=== PATIENT | male | born 1945 | race Caucasian/White ===

== ENCOUNTER → 2020-07-16 14:42 | Outpatient (CLI) | payer MEDICARE, SELFPAY ==
[2016-02-28 15:27] VITALS: BMI 28.3
[2020-07-16 17:28] LABS: Absolute Lymphocyte Count 1.39 X10^3/uL (0.83-4.51); Absolute Neutrophil Count 2.7 X10^3/uL (2.0-7.7); Basophil# 0.05 X10^3/uL; Eosinophil# 0.18 X10^3/uL; Eosinophils% 3.7 % (0-5); Hematocrit 45.5 % (40-54); Hemoglobin 14.4 g/dL (13.0-16.5); Lymphocyte # 1.39 X10^3/ul (4.0); Lymphocyte % 28.2 % (19-41); Mean Corp Hgb Conc 31.6 g/dL (32-36); Mean Corpuscular Volume 91.7 fL (80-94); Mean Platelet Vol. 11.5 fl (6.2-12.0); Monocyte# 0.63 X10^3/uL; Monocyte% 12.8 % (0-10); NRBC Flagged by Analyzer 0 % (0-5); Neutrophil # 2.67 X10^3/uL (2.7-7.7); Neutrophil % 54.1 % (47-70); Platelet Count 189 K/mm3 (150-450); RBC Distribution Width CV 13.2 % (11.6-14.6); RBC Distribution Width SD 44.9 fl (35.1-43.9); Red Blood Count 4.96 M/mm3 (4.6-6.2); White Blood Count 4.9 K/mm3 (4.4-11.0)
[2020-07-16 17:34] LABS: Erythrocyte Sedimentation Rate 7 mm/hr (0-20)
[2020-07-16 17:43] LABS: ALB/GLOB Ratio 1.1 RATIO (0.9-2.4); AST(SGOT) 17 U/L (15-37); Alanine Aminotransfer ALT/SGPT 27 U/L (16-61); Albumin, Serum 3.9 g/dL (3.2-5.0); Alkaline Phosphatase 102 U/L (45-117); Anion Gap 5 (5-15); BUN 12 mg/dL (7-18); BUN/Creat Ratio 13.2 RATIO (10-20); Calcium,Total 9.5 mg/dL (8.5-10.1); Chloride 106 mmol/L (98-107); Creatinine, Serum 0.91 mg/dL (0.70-1.30); EST Glomerular Filtration Rate 86 mL/min (>60); Est Glom Filt Rate - Afr Amer 104 mL/min (>60); Globulin 3.6 g/dL (2.2-4.2); Glucose 87 mg/dL (74-106); Potassium 4.1 mmol/L (3.5-5.1); Protein, Total 7.5 g/dL (6.4-8.2); Rheumatoid Factor < 10.0 IU/mL (<15); Sodium Level 140 mmol/L (136-145)
[2020-07-19 16:08] LABS: SJOGREN'S Anti-SS-A test < 0.2 AI (0.0-0.9); SJOGREN'S Anti-SS-B test < 0.2 AI (0.0-0.9)
[2020-07-19 16:25] LABS: ANTINUCLEAR ANTIBODIES DIRECT Negative (Negative)
== END ==
PROVIDERS: PCP Family Medicine; Referring Provider Physician Assistant Medical; Visit Provider Physician Assistant Medical
DX: L50.8 Other urticaria (principal); L50.1 Idiopathic urticaria; L57.0 Actinic keratosis; L21.8 Other seborrheic dermatitis; L29.8 Other pruritus
CPT/HCPCS: 36415; 80053; 85025; 85652; 86038; 86235; 86431

== ENCOUNTER 2020-08-17 16:36 | Outpatient (RCR) | payer MEDICARE, SELFPAY ==
[2020-08-17] MEDS: COVID-19 VACC, MRNA(PFIZER)/PF 30 MCG/0.3 ML SYRINGE IM (19:00)
[2020-09-09] MEDS: COVID-19 VACC, MRNA(PFIZER)/PF 30 MCG/0.3 ML SYRINGE IM (13:04)
== END 2020-10-26 23:59 ==
LOC: IMMUN 16:36
PROVIDERS: PCP Family Medicine; Visit Provider Family Medicine
DX: Z23 Encounter for immunization (principal)
CPT/HCPCS: 0001A; 0002A; 91300

== ENCOUNTER → 2022-01-16 | Outpatient (CLI) | payer MEDICARE, SELFPAY ==
--- NOTE | 2022-01-16 17:10 | CT_ITS ---
STUDY: CT RIGHT LOWER EXTREMITY WITHOUT CONTRAST REASON FOR EXAM: Right knee osteoarthritis, surgical planning. TECHNIQUE: Transaxial CT imaging of the lower extremity was performed. Coronal and sagittal images were reformatted. Individualized dose optimization techniques were used for this CT. COMPARISON: None. FINDINGS: Knee: There is joint space narrowing of the medial femorotibial compartment with subchondral eburnation (coronal reconstruction 27). There is preservation of joint space of the lateral femorotibial compartment. There is joint space narrowing of the lateral aspect of the patellofemoral articulation (axial image 328). There is a small joint effusion. There is a small popliteal cyst (axial image 395). There is enthesopathy of the proximal tibia at the origin of the soleus muscle (coronal reconstruction 36). Hip: There is a small subchondral cyst in the lateral acetabulum (coronal reconstruction 60-62) with preservation of right hip joint space. There are radiation seeds in the prostate. Ankle: Normal tibiotalar, posterior subtalar and calcaneocuboid articulations. There is a small posterior calcaneal enthesophyte. There is mild enthesopathy of the medial malleolus. There is vascular calcification. CT/Extremity Lower without Contra IMPRESSION: Right knee osteoarthritis. Electronically Signed: Jeff Walton MD at 14:58 EDT ,
== END | disposition home or self-care (01) ==
PROVIDERS: PCP Family Medicine; Visit Provider Orthopaedic Surgery
DX: M17.11 Unilateral primary osteoarthritis, right knee (principal)
CPT/HCPCS: 73700

== ENCOUNTER 2022-01-30 11:40 | Observation (INO) | payer MEDICARE, SELFPAY ==
--- NOTE | 2022-01-24 13:59 | EKG12_ITS ---
Test Reason : PREOP Blood Pressure : / mmHG Vent. Rate : 067 BPM Atrial Rate : 067 BPM P-R Int : 160 ms QRS Dur : 140 ms QT Int : 406 ms P-R-T Axes : 053 -75 014 degrees QTc Int : 429 ms Sinus rhythm with marked sinus arrhythmia Right bundle branch block Left anterior fascicular block Bifascicular block Abnormal ECG Confirmed by PORFIRIO HA, DAYAN ([id number]), order editor ONEIL VEGA ([id number]) on 01/25/2022 10:15:57 AM Referred By: Fly Arellano Confirmed By:DAYAN MONROY MD
--- NOTE | 2022-01-24 14:05 | RAD_ITS ---
STUDY: CHEST SERIES--PA AND LATERAL VIEWS OF 1410 HOURS ON 01/24/2022 REASON FOR EXAM: 76-year-old male with pre-operative chest. TECHNIQUE: A standard 2 view chest x-ray series was performed per protocol. COMPARISON: None. FINDINGS: Mild demineralization. Mild thoracolumbar dextroscoliosis. No cardiomegaly. Mild emphysema. No pulmonary infiltrates, atelectasis, effusion, pulmonary mass lesions. No pneumonia, pneumonitis, bronchitis. There is a small bulla superior to the left hilum. Air-filled splenic flexure the colon beneath the left hemidiaphragm--could produce a left splenic flexure syndrome. RAD/Chest PA and Lateral IMPRESSION: 1. No cardiomegaly. 2. Mild emphysema with a small bulla superior to the left. 3. No other evidence of active cardiopulmonary disease. No pulmonary mass lesions. 4. Air-filled splenic flexure of colon beneath the left hemidiaphragm--could produce a left splenic flexure syndrome. 5. Mild demineralization and a mild thoracic dextroscoliosis. Electronically Signed: Jose Manuel Russell MD at 2:07 EDT ,
[2022-01-24 14:45] LABS: Absolute Lymphocyte Count 1.18 X10^3/uL (0.83-4.51); Absolute Neutrophil Count 2.6 X10^3/uL (2.0-7.7); Basophil# 0.04 X10^3/uL; Basophil% 0.9 % (0-1); Eosinophil# 0.27 X10^3/uL; Eosinophils% 5.9 % (0-5); Hematocrit 42.9 % (40-54); Hemoglobin 14.6 g/dL (13.0-16.5); Lymphocyte # 1.18 X10^3/ul (0.83-4.51); Lymphocyte % 25.6 % (19-41); Mean Corpuscular Hgb 31.5 pg (27.0-32.0); Mean Corpuscular Volume 92.7 fL (80-94); Mean Platelet Vol. 10.9 fl (6.2-12.0); Monocyte# 0.52 X10^3/uL; Monocyte% 11.3 % (0-10); NRBC Flagged by Analyzer 0 % (0-5); Neutrophil # 2.59 X10^3/uL (2.7-7.7); Neutrophil % 56.1 % (47-70); Platelet Count 182 K/mm3 (150-450); RBC Distribution Width CV 13.2 % (11.6-14.6); RBC Distribution Width SD 44.3 fl (35.1-43.9); Red Blood Count 4.63 M/mm3 (4.6-6.2); White Blood Count 4.6 K/mm3 (4.4-11.0)
[2022-01-24 15:02] LABS: Magnesium 2.5 mg/dL (1.6-2.6)
[2022-01-24 15:04] LABS: Anion Gap 4 (5-15); BUN 12 mg/dL (7-18); BUN/Creat Ratio 12.4 RATIO (10-20); Calcium,Total 9.7 mg/dL (8.5-10.1); Chloride 109 mmol/L (98-107); Creatinine, Serum 0.97 mg/dL (0.70-1.30); EST Glomerular Filtration Rate 79 mL/min (>60); Est Glom Filt Rate - Afr Amer 96 mL/min (>60); Glucose 100 mg/dL (74-106); Potassium 4.4 mmol/L (3.5-5.1); Sodium Level 143 mmol/L (136-145)
[2022-01-30] VITALS (10 sets, daily range): BP systolic 93–130; BP diastolic 59–80; PULSE 75–87; RESP 16–18; TEMP 36.4–37.2; O2SAT 95–100; BMI 27.3
[2022-01-30] MEDS: dexAMETHasone 10 MG/ML Vial IV (06:43)
[2022-01-30] MEDS: Gabapentin 600 MG Tablet PO (06:43)
[2022-01-30] MEDS: Lactated Ringers 1,000 ML 999 ML IV ×2 (06:43→08:15)
[2022-01-30] MEDS: Acetaminophen 500 MG Tablet 1000 MG PO ×3 (06:44→22:35)
[2022-01-30] MEDS: Lactated Ringers 1,000 ML 75 ML IV (07:06)
--- NOTE | 2022-01-30 07:30 | KNEE_PTH ---
PATIENT: HARPREET VALENTIN II LOC: MS3 U#:[id number] AGE/SX: 76/M ROOM: [facility] [place] RE01/30/[address]: Dr. Fly Arellano DO : 1945 BED: 1 DIS: 02/02/2022 SPEC #: [id number] RECD: 01/30/22 14:02 STATUS: DEREK JESSICA #: [id number] ETHAN: 01/30/22 07:[address]: Fly Arellano DEPT: SURGICAL PATHOLOGY RECD BY: Alize Rothman ENTERED: 01/31/22 07:49 SP TYPE: TOTAL KNEE OTHR DR: Dr. Rob Parada MD Tissues: Knee, NOS Procedures: Decalcification bone/plaque Surgery Specimen Level IV HEADER OPERATION: ERAS, total knee replacement robotic arm assist PRE-OP DIAGNOSIS: Osteoarthritis right knee TISSUE SUBMITTED: Debrided bone and tissue right knee MICROSCOPIC DIAGNOSIS Bone and tissue of right knee, total knee resection: Severe degenerative joint disease. AM:lorraine 02/03/2022 MICROSCOPIC DESCRIPTION Slides are reviewed. GROSS DESCRIPTION Received is one container designated debrided bone and tissue right knee. The specimen consists of multiple fragments of sun-yellow bone measuring in aggregate 11 x 9 x 4 cm. No soft tissue is identified. A number of bony fragments contain articular surfaces consistent with tibial plateau and femoral condyle and displaying prominent osteophyte formation, eburnation, and bone erosion. Signal Fitter sections are submitted in one cassette after decalcification. / GAMA:lorraine 01/31/2022 TC:5 CPT: 73767, 75871
[2022-01-30] MEDS: Cefazolin 2 GM in 0.9% Normal Saline 100 ML IV (07:46)
[2022-01-30] MEDS: TXA 1000mg in NS100 100ml (IVPB at Incision) 660 MG IV (07:55)
[2022-01-30 08:25] LABS: Bedside Glucose 101 mg/dL (74-106)
[2022-01-30] MEDS: TXA 1000mg in NS100 100ml (IVPB at Closure) 660 MG IV (09:06)
[2022-01-30] MEDS: Joint Pain Solution (NO KETOROLAC) IV (09:15)
--- NOTE | 2022-01-30 10:06 | RAD_ITS ---
STUDY: X-RAY - RIGHT KNEE REASON FOR EXAM: Male, 76 years old. Post op -- AP and Lateral xray of operative knee in PACU TECHNIQUE: 2 view(s) of the knee. COMPARISON: None. FINDINGS: Normal visualized distal femur. Normal visualized proximal tibia and fibula. Normal proximal tibiofibular articulation. The patient is status post total knee replacement. There is good alignment. Postoperative soft tissue changes. RAD/Knee 1 or 2 Views IMPRESSION: Status post total knee replacement. There is good alignment. Postoperative soft tissue changes. Electronically Signed: Robert Dias MD at 10:24 EDT ,
[2022-01-30] MEDS: Lactated Ringers 1,000 ML 125 ML IV (10:36)
--- NOTE | 2022-01-30 11:02 | PCM.OPRPT ---
Report of Operation Date of Procedure: 01/30/22 Pre-Operative Diagnosis: OA right knee Post-Operative Diagnosis: same Surgery/Procedure Performed:: Right TKR Description of Surgical Findings:: Report of Operation Date of Procedure: 01/30/2022 Preoperative Diagnosis: [right ] knee primary osteoarthritis Postoperative Diagnosis: [right ] knee primary osteoarthritis Operation: Robotic Assisted Knee Total Arthroplasty, [ right ] knee Surgeon: Dr Fly Arellano DO Alignment Technician: Naina Sheppard PA-C Anesthesia: Spinal Anesthesiologist: Ramses Delong M.D. Findings: Stable knee with good patella tracking Specimen(s): Bony cuts Complications: No intraoperative complications Estimated Blood Loss: 20 cc IV Fluids: 1000 cc crystalloid Implants Used: 1. Nadya Triathlon press-fit CR size 5 femur 2. Nadya Triathlon size 6 tibia 3. 32 mm patella 4. 9 mm CS polyethylen Brief History Operative Indications: [ (76 y/o male) ] with history of [ right ] knee osteoarthrosis with radiographic findings with loss of joint space, osteophyte formation and subchondral sclerosis. Failed conservative measures as mentioned in the H&P. Discussion of total knee arthroplasty as well as risk and benefits were discussed with the patient including but not limited to blood loss, DVTs, PEs, neurovascular damage, general risk of anesthesia including loss of life, and stiffness or instability were also discussed with the patient. Patient demonstrated understanding and was able to sign informed consent. Procedure: On the date of procedure, patient's [right ] lower extremity was marked in the preoperative area. The patient was then taken back to the operating room where that patient was placed on the table in the supine position. All bony prominences were identified and well-padded. Anesthesia assumed control of the C-spine and airway throughout the remainder of the procedure. A tourniquet was placed on the [right ] upper thigh and the leg was prepped in a sterile fashion. The surgeon then scrubbed at this time. Upon reentering the room, the [right ] lower extremity was draped in a standard orthopedic fashion. A timeout was then called and everyone agreed upon the side, the site, the procedure to be performed, patient's identity and antibiotics given. Esmarch bandage was used to exsanguinate the extremity and the tourniquet was placed up to 250 mmHg with the knee in flexion. A midline skin incision was made and a sharp dissection was taken down through skin, subcutaneous tissue and fat. The standard medial parapatellar incision was made and the patella was subluxed laterally. An appropriate deep MCL release was done and the fat pad was resected. Our attention was then directed to the patella. The patella was everted and a flat resection was made. The knee was then flexed up and 2 femoral pins were placed inside the incision and 2 tibial pins were placed outside the incision in the medial tibia bicortically. Once this was completed, the 2 checkpoints in the femur and tibia were placed. Knee was then flexed up and the bony landmarks were registered. Once the was completed, the knee taken through range of motion and manually stressed allowing us to plan for an appropriate tibial cut. The robotic arm was brought into the field sterilely and checkpoint and saw were registered. Based on the patient's deformity, the tibial cut was made in [ 2 degrees varus ]. At this time, the tensioner was then placed in the joint and ligament tension was checked at 90 degrees and full extension. Based on the patient's ligamentous tension, appropriate adjustments were made to the operative plan and ligament releases were done. Once we were happy with our operative plan with balanced flexion and extension gaps, our attention was directed to the femur. The robot was brought into the field sterilely and registered. Posterior condylar cuts, anterior chamfer cuts and anterior cuts were appropriately made for a [size 5 ] femur. When these were completed, the saws were switched out in the distal femoral and posterior chamfer cuts were made. Protecting the soft tissue throughout this time. A [ size 6 ] base plate was selected. The knee was flexed to 90 degrees and soft tissues and posterior osteophytes were removed from the joint. 40 cc of the periarticular injection was injected into the posterior medial corner of the joint. The appropriate trials were then placed on the femur and tibia. A trial polyethylene was trialed to ensure proper balancing and stability of the knee. The appropriate tibial internal rotation was then marked with a bovie. Our attention was then directed to the patella. The lug holes were drilled and the patella trial was placed. Patellar tracking was checked and deemed appropriate. Once we were happy, lug holes were drilled for the femur and trial components were removed. The tibia was subluxed and pinned into place and the keel was punched and drilled appropriately. Final components were verified and opened. The wound was copiously irrigated with normal saline. The components were impacted into place with the tibia, femur and finally the patella. The trial poly component was placed and the knee was placed in full extension. The tracking, alignment and balance were verified and a [9 mm CS ] polyethylene component was placed. Once the final components were placed an Irrisept lavage was performed and the wound was copiously irrigated with normal saline solution and the periarticular injection was given. the wound was closed in a layer-talley fashion using #1 vicryl interrupted sutures for the arthrotomy, 2-0 interrupted vicryl suture for the subcuticular layer and michelet for final skin closure. A sterile compressive dressing was then placed. The patient was then awakened from anesthesia, transferred to the [place] and transferred to the PACU for recovery. My physician junior administrative assistant was a vital part of this case. He was important in appropriate retraction during the case, and protection of soft tissues during bony cuts. His intimate knowledge of the case and my steps aided in safe and expedient completion of the procedure as well as appropriate position of the leg during the case. He was also vital in assisting with closure under my direct supervision. Due to the complexity of this case, robotic arm was used to assist in the surgery to improve accuracy and clinical outcomes. Post-op Plan: DVT ppx; ASA 81 mg BID, thigh high compression stockings Follow up: in office in 2 weeks for wound check PT: to start POD #0 at hospital, outpatient PT should be arranged. Preoperative antibiotic: Ancef 2 grams IV Fly Arellano DO Surgeon: Fly Arellano international marketing executive: Naina Sheppard Type of Anesthesia: Spinal Anesthesiologist: Ramses Delong Estimated Blood Loss (mL): 30 cc Fluids Replaced: 1000 cc crystalloid Admit VTE Documentation VTE Present on Admission: No VTE Mechan Device Prophylaxis: SCD's VTE Pharm Prophylaxis ordered?: Yes
[2022-01-30] MEDS: oxyCODONE 5 MG Tablet PO ×3 (12:59→22:34)
[2022-01-30] MEDS: Aspirin 81 MG TAB.CHEW PO (16:02)
[2022-01-30] MEDS: Cefazolin 1 GM/50 ML BAG IV ×2 (16:02→23:34)
[2022-01-30] MEDS: Lactated Ringers 1,000 ML 15 ML IV (20:57)
[2022-01-30] MEDS: Atorvastatin Calcium 10 MG Tablet PO (22:36)
[2022-01-31] MEDS: oxyCODONE 5 MG Tablet PO ×4 (03:27→18:43)
[2022-01-31 04:47] VITALS: BP 109/61; PULSE 85; RESP 16; TEMP 36.7; O2SAT 96
[2022-01-31 04:50] LABS: Hematocrit 36.6 % (40-54); Hemoglobin 12.3 g/dL (13.0-16.5); Mean Corp Hgb Conc 33.6 g/dL (32-36); Mean Corpuscular Hgb 31.1 pg (27.0-32.0); Mean Corpuscular Volume 92.4 fL (80-94); Mean Platelet Vol. 10.8 fl (6.2-12.0); Platelet Count 169 K/mm3 (150-450); RBC Distribution Width CV 13.2 % (11.6-14.6); RBC Distribution Width SD 44.9 fl (35.1-43.9); Red Blood Count 3.96 M/mm3 (4.6-6.2)
[2022-01-31 05:11] LABS: Anion Gap 7 (5-15); BUN 13 mg/dL (7-18); BUN/Creat Ratio 14.4 RATIO (10-20); Calcium,Total 8.6 mg/dL (8.5-10.1); Chloride 108 mmol/L (98-107); EST Glomerular Filtration Rate 87 mL/min (>60); Est Glom Filt Rate - Afr Amer 105 mL/min (>60); Estimated Creatinine Clearance 61.04 ml/min; Glucose 115 mg/dL (74-106); Potassium 4.1 mmol/L (3.5-5.1); Sodium Level 140 mmol/L (136-145)
[2022-01-31] MEDS: Ondansetron 4 MG/2 ML Vial IV ×2 (07:06→17:15)
[2022-01-31] MEDS: 0.9% Saline Lock 10 ML Syringe IV ×2 (07:07→17:15)
[2022-01-31] MEDS: Lactated Ringers 1,000 ML 15 ML IV (07:08)
[2022-01-31] MEDS: Acetaminophen 500 MG Tablet 1000 MG PO ×3 (07:08→21:06)
[2022-01-31] MEDS: Aspirin 81 MG TAB.CHEW PO ×2 (08:40→16:53)
[2022-01-31] MEDS: Multivitamins,Therapeutic Tablet 1 TABLET PO (08:40)
[2022-01-31] MEDS: Senna/Docusate Sodium 1 Tablet 2 TABLET PO ×2 (08:42→21:06)
[2022-01-31 09:09] VITALS: O2SAT 96
[2022-01-31 10:10] VITALS: BP 124/62; PULSE 90; RESP 18; TEMP 37.1; O2SAT 98
--- NOTE | 2022-01-31 10:33 | CASEMGMT ---
Discharge Shredded Filler Machine Wrapper Layer María from [facility] reached out. María stated patient was already set to go to [facility] yesterday after surgery but, patient was kept over night. Dr. Arellano office has already sent María facesheet and notes. Patient called María this morning and was still hoping he could go to [facility]. PORTIA Hill has been made aware and this property underwriter will open a referral for [facility] via [facility]. Plan: [facility] Roberta Hickey Discharge Shredded Filler Machine Wrapper Layer
--- NOTE | 2022-01-31 11:06 | CASEMGMT ---
SAUD CM in to discuss MARTINEZ form with patient. RN CM explained MARTINEZ form, patient voiced understanding. Pt signed form and filed in chart. Pt provided with a copy of signed MARTINEZ form. Patient had no further questions or concerns at this time.
--- NOTE | 2022-01-31 11:06 | CASEMGMT ---
Social Work SW to room to meet with patient for initial assessment. SW introduced self and role at [facility]. Pt voices understanding and consents to assessment. Pt resting in bed in no distress at this time. Pt able to answer all questions, but displaying some minimal confusion. Pt stating that he has to go downstairs to get his wallet, but is able to recover and states wait, where am I. Care providers, pharmacy, and demographics verified/updated at this time. PCP: Dr. Chapman Specialists: Dr. Arellano, orthopedic; Dr. Che, dermatology Preferred Pharmacy: [facility] Insurance: [employer] Prescription Benefit: Yes Living Will/HPOA: No. Pt agreeable to receive information to review but is not interested in completing. Copys of documents and RAC card provided with AD information. LNOK: Brother Richar Foy. Lives out of town. Living Arrangements: Pt lives alone in a two story home with 1 small step to enter. Pt states he has 15 stairs to the second floor and bedroom and bathroom are on the second floor. Pt was Independent with all care needs prior to elective surgery. Pt states his only family contact is his brother who lives out of town. Pt does not have assistance upon discharge. Transportation: Pt states drives self usually. Will not be able to drive at this time until cleared by ortho. DME: None HHC/SNF: Pt states he was at [facility] in 2016 for rehabilitation after first knee replacement. Plan: Pt states he cannot return home as he lives alone with very limited social support. Pt brother lives out of town and no other supports available. Pt lives in a two story home with bed and bathroom on second floor. Pt states that he would like to go to [facility] at time of discharge for short term rehabilitation prior to returning home alone. A list of SNF providers including quality and resource use data and consistent with the patient?s preferred geographic region, medical needs, and insurance network were provided from the [facility] Guide. Pt again confirms plan to go to [facility] and states he has already spoke to [facility] and insurance company about this. SW explained that referral will be made to [facility] and that precert will need obtained from insurance. Pt repeats he has spoke with insurance and they gave pt permission to go to [facility]. SW informed pt that insurance will want to see surgery notes and therapy notes after surgery to determine precertification. Roberta, discharge speech pathologist assistant, updated and will send referral to [facility]. SW will await determination of acceptance and precert from insurance. Plan: [facility], pending acceptance and precert ZARINA Shields
--- NOTE | 2022-01-31 11:31 | CASEMGMT ---
Social Work [facility] is able to accept pt. Precert will be started. Discharge pending insurance preauthorization. ZARINA Shields
--- NOTE | 2022-01-31 12:07 | PCM.PN.ORT ---
Subjective Subjective Patient is s/p right sided total knee arthroplasty with Knapic yesterday 01/30/2022. Patient resting comfortably in bed. Rates pain 5/ 10 at rest. With movement 5/10. States taking Tylenol as needed and ice help to relieve pain. Patient has been up with therapy. Walking with the assit of a walker. Afebrile, no chest pain, shortness of breath, negative calf pain/ erythema, and no other signs of DVT. Objective Data Objective Data Vital Signs: Vital Signs Temp Pulse Resp BP Pulse Ox O2 Del Method O2 Flow Rate 98.8 F 90 18 124/62 H 98 Room Air 4 01/31/22 10:10 01/31/22 10:10 01/31/22 10:10 01/31/22 10:10 01/31/22 10:10 01/31/22 10:10 01/30/22 10:30 Oxygen Flow Rate (L/min) 4 Oxygen Delivery Method Room Air Weight: 78 kg Body Mass Index (BMI) 27.3 Intake & Output: Intake and Output for Last 24 Hours 01/29/22 01/30/22 01/31/22 23:59 23:59 23:59 Intake Total 4998.17 / 5048.17 814.50 / 814.50 Output Total 1100 / 1775 1725 / 1725 Balance 3898.17 / 3273.17 -910.50 / -910.50 Lab / Micro Data Result Diagrams: 01/31/22 04:35 01/31/22 04:35 Labs: Laboratory Results - last 24 hr 01/31/22 04:35: WBC 9.0, RBC 3.96 L, Hgb 12.3 L, Hct 36.6 L, MCV 92.4, MCH 31.1, MCHC 33.6, RDW Std Deviation 44.9 H, RDW Coeff of Sharifa 13.2, Plt Count 169, MPV 10.8 01/31/22 04:35: Sodium 140, Potassium 4.1, Chloride 108 H, Carbon Dioxide 25.0, Anion Gap 7, BUN 13, Creatinine 0.90, Estim Creat Clear Calc 61.04, Est GFR (MDRD) Af Amer 105, Est GFR (MDRD) Non-Af 87, BUN/Creatinine Ratio 14.4, Glucose 115 H, Calcium 8.6 Micro: Microbiology 01/24/22 14:28 Swab (Method) Nasal Screen MRSA/MSSA - Final Physical Exam Narrative Patient resting comfortably in bed No signs of acute distress Satting well on room air Limb is warm to touch, Sensation intact throughout entire lower extremity, including saphenous, sural, superficial and deep peroneal, and tibial distribution. DP/PT pulses bounding. Dorsi and plantar flexion 5/5 Dressing clear dry intact Calf nontender to palpation, no erythema, no edema. Negative Homans Assessment & Plan Assessment/Plan (1) Status post total right knee replacement: (2) Presence of total right knee joint prosthesis: PLAN: Plan Patient is status post right total knee arthroplasty yesterday 01/30/2022 1. Will continue PT today. Weightbearing as tolerated 2. plan for discharge to care facility when insurance authorization is approved. Cleared from an orthopedic standpoint. 3. Patient will follow up for post op appointment in 2 weeks 5. WBC 9.0 no acute reactive leukocytosis 6. H/H 12.3/36.6: post operavtive anemia secondary to acute blood loss intraoperatively. Patient is asymptomatic at this time. No intraoperative complications. will continue to monitor. no acute interventions. 7. DVT prophylaxis : Aspirin 81 mg twice daily x4 weeks 8. Pain control: patient instructed to take tylenol 500mg 2 tablets TID. and oxycodone 1-2 tablets every 4-6 hours only as needed for pain control. 9. ok to remove post op dressing. post op day 5
--- NOTE | 2022-01-31 12:15 | PCM.TXEXTCAR ---
Diet Diet Order/Speech Therapy: 01/30/22 11:30 Diet: Regular - General Is pt able to select menu?: Yes Wound(s) RIGHT KNEE: Wound Type: Surgical Incision Dressing Change: Dry Sterile Dressing Therapies Weight Bearing: Weight bearing as tolerated Extremity Affected:: Right Lower Problem/Diagnosis (1) Status post total right knee replacement: Status: Acute Code(s): Z96.651 - Presence of right artificial knee joint (2) Presence of total right knee joint prosthesis: Status: Acute Code(s): Z96.651 - Presence of right artificial knee joint Plan Patient is status post right total knee arthroplasty yesterday 01/30/2022 1. Will continue PT today. Weightbearing as tolerated 2. plan for discharge to care facility when insurance authorization is approved. Cleared from an orthopedic standpoint. 3. Patient will follow up for post op appointment in 2 weeks 5. WBC 9.0 no acute reactive leukocytosis 6. H/H 12.3/36.6: post operavtive anemia secondary to acute blood loss intraoperatively. Patient is asymptomatic at this time. No intraoperative complications. will continue to monitor. no acute interventions. 7. DVT prophylaxis : Aspirin 81 mg twice daily x4 weeks 8. Pain control: patient instructed to take tylenol 500mg 2 tablets TID. and oxycodone 1-2 tablets every 4-6 hours only as needed for pain control. 9. ok to remove post op dressing. post op day 5 Allergies/Procedures Done in Hospital Allergies naproxen sodium [From Aleve] Allergy (Verified 01/30/22 06:28) Rash Type of Care/Length of Stay Estimated LOS: Convalescent Care Less Than 30 days Type of Care Needed: Skilled Rehab Potential: Good Prognosis: Good Additional Orders/Day of Discharge Day of Discharge: 01/31/22 Discharge Plan Admission Admit Date/Time: 01/30/22 11:40 Attending Provider: Fly Arellano Primary Care Provider: Rob Parada Discharge Orders/Prescriptions Prescriptions: New acetaminophen 500 mg Tablet 1,000 mg PO Q8H Qty: 90 0RF aspirin 81 mg Tablet,Chewable 81 mg PO BIDCM Qty: 60 0RF oxycodone 5 mg Tablet 5 - 10 mg PO Q4H PRN PRN (Reason: Pain Score 4-10) 7 Days Qty: 60 0RF Continued ketoconazole 15 GM cream 1 applic topical PRN PRN (Reason: SKIN IRRITATION) Label Comments: skin irritation selenium sulfide 120 ML lotion 120 ml PO DAILY PRN PRN (Reason: SKIN IRRITATION) Label Comments: skin irritation multivitamin Tablet 1 tab PO DAILY atorvastatin 10 mg tablet 10 mg PO DAILY Label Comments: TAKE 1 TABLET BY MOUTH ONCE DAILY AT BEDTIME FOR CHOLESTEROL turmeric 400 mg Capsule 400 mg PO DAILY ibuprofen 600 mg Tablet 600 mg PO Q6H PRN (Reason: Pain) Referrals / Follow Up: Rob Parada MD [Primary Care Provider] - Disposition Disposition (needs filled in before D/C Order can be placed): [facility] Facility
[2022-01-31 14:25] VITALS: BP 132/66; PULSE 99; RESP 18; TEMP 36.6; O2SAT 96
[2022-01-31 20:45] VITALS: BP 141/72; PULSE 103; RESP 18; TEMP 36.8; O2SAT 95
[2022-01-31] MEDS: Atorvastatin Calcium 10 MG Tablet PO (21:05)
[2022-02-01 02:30] VITALS: BP 131/66; PULSE 104; RESP 16; TEMP 37.5; O2SAT 97
[2022-02-01] MEDS: Acetaminophen 500 MG Tablet 1000 MG PO ×3 (06:23→22:25)
[2022-02-01 08:17] VITALS: BP 107/49; PULSE 99; RESP 18; TEMP 37.1; O2SAT 93
[2022-02-01] MEDS: Multivitamins,Therapeutic Tablet 1 TABLET PO (08:23)
[2022-02-01] MEDS: Aspirin 81 MG TAB.CHEW PO ×2 (08:23→17:25)
[2022-02-01] MEDS: Senna/Docusate Sodium 1 Tablet 2 TABLET PO ×2 (08:23→22:25)
--- NOTE | 2022-02-01 12:36 | CASEMGMT ---
Discharge Call Circuit Worker María from [facility] reached out. Lianne is trying to deny patient for a fci stay. Insurance stated that this rationale member would benefit more for a lower level of care such as LTC with part B benefits. There is an option to do a PEER TO PEER on this case. The peer to peer NEEDS to be schedule TODAY 02/01/2022 by 4:30pm. The peer to peer needs to be completed by TOMORROW 02/02/2022 by NOON. Peer to Peer number is [phone] option 4. If this case gets denied, [facility] said patient can do a fast appeal at [phone] Plan: Roberta Hickey Discharge Call Circuit Worker
--- NOTE | 2022-02-01 12:45 | CASEMGMT ---
Social Work Pt preauthorization denied. PORTIA spoke with DONNY Scott who states she will complete Peer to Peer as pt is not safe to return home alone. Phone call placed to [facility] Peer to Peer line and PORTIA spoke with Lorri and arranged for Peer to Peer. Dr. Jackson from [facility] will [address] a call to DONNY Scott between 2pm - 4pm today. Naina's contact number provided to Lorri. Naina updated and agreeable to Peer to Peer process and time. ZARINA Shields
--- NOTE | 2022-02-01 13:01 | PCM.PN.ORT ---
Subjective Subjective Patient is s/p right sided total knee arthroplasty with Dr. Arellano. Patient resting comfortably in bed. Rates pain 5/ 10 at rest. With movement 7/10. States taking oxycodone and Tylenol as needed and ice help to relieve pain. Patient has been up with therapy. Walking with the assit of a walker. Afebrile, no chest pain, shortness of breath, negative calf pain/ erythema, and no other signs of DVT. Objective Data Objective Data Vital Signs: Vital Signs Temp Pulse Resp BP Pulse Ox O2 Del Method O2 Flow Rate 98.7 F 99 18 107/49 L 93 Room Air 4 02/01/22 08:17 02/01/22 08:17 02/01/22 08:17 02/01/22 08:17 02/01/22 08:17 02/01/22 08:27 01/30/22 10:30 Oxygen Flow Rate (L/min) 4 Oxygen Delivery Method Room Air Weight: 78 kg Body Mass Index (BMI) 27.3 Intake & Output: Intake and Output for Last 24 Hours 01/30/22 01/31/22 02/01/22 23:59 23:59 23:59 Intake Total 4998.17 / 5048.17 1214.50 / 1214.50 Output Total 1100 / 1775 1725 / 2425 1999 Balance 3898.17 / 3273.17 -510.50 / -1210.50 -1999 Lab / Micro Data Result Diagrams: 01/31/22 04:35 01/31/22 04:35 Micro: Microbiology 01/24/22 14:28 Swab (Method) Nasal Screen MRSA/MSSA - Final Physical Exam Narrative Patient resting comfortably in bed No signs of acute distress Satting well on room air Limb is warm to touch, Sensation intact throughout entire lower extremity, including saphenous, sural, superficial and deep peroneal, and tibial distribution. DP/PT pulses bounding. Dorsi and plantar flexion 5/5 Dressing clear dry intact Calf nontender to palpation, no erythema, no edema. Negative Homans Assessment & Plan Assessment/Plan (1) Status post total right knee replacement: PLAN: 1. Will continue PT today weightbearing as tolerated 2. Patient denied by insurance for discharge. We will do peer to peer today. 3. Patient will follow up for post op appointment in 2 weeks 4. DVT prophylaxis : Aspirin 81 mg twice daily x4 weeks 5. Pain control: patient instructed to take tylenol 500mg 2 tablets TID. and oxycodone 1-2 tablets every 4-6 hours only as needed for pain control. 6. ok to remove post op dressing. 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
[2022-02-01 14:05] VITALS: BP 111/65; PULSE 100; RESP 18; TEMP 37.1; O2SAT 95
--- NOTE | 2022-02-01 14:06 | CASEMGMT ---
PORTIA called [facility] and the PA has already initiated the peer to peer. She is waiting on a call back between 2p and 5p. Inez CAM
--- NOTE | 2022-02-01 15:34 | CASEMGMT ---
Social Work SW met with pt and informed that insurance is requesting Peer to Peer and that this will be done today. SW spoke with alternate discharge plans should insurance deny SNF stay. SW spoke with pt regarding home with home health or private pay at [facility] and get therapy under part B benefits. Pt states he has 15 steps to his bathroom which he cannot do and he does not feel he can return home alone. Pt states he will consider these two options in the event pt SNF stay is denied by insurance. ZARINA Bailey
[2022-02-01 17:45] VITALS: BP 104/54; PULSE 97; RESP 18; TEMP 37.6; O2SAT 95
[2022-02-01 20:30] VITALS: BP 129/59; PULSE 102; RESP 16; TEMP 37.1; O2SAT 95
[2022-02-01 20:57] VITALS: BP 129/59; PULSE 102; RESP 16; TEMP 37.1; O2SAT 95
[2022-02-01] MEDS: Atorvastatin Calcium 10 MG Tablet PO (22:25)
[2022-02-02 02:30] VITALS: BP 104/63; PULSE 91; RESP 14; TEMP 36.9; O2SAT 97
[2022-02-02] MEDS: Acetaminophen 500 MG Tablet 1000 MG PO ×2 (05:57→14:04)
[2022-02-02 08:41] VITALS: BP 96/51; PULSE 97; RESP 16; TEMP 36.7; O2SAT 97
[2022-02-02] MEDS: Aspirin 81 MG TAB.CHEW PO (08:45)
[2022-02-02] MEDS: Multivitamins,Therapeutic Tablet 1 TABLET PO (08:45)
[2022-02-02] MEDS: Senna/Docusate Sodium 1 Tablet 2 TABLET PO (08:45)
--- NOTE | 2022-02-02 09:24 | CASEMGMT ---
Social Work SW called [facility] in attempt to reach Naina Sheppard to discuss Peer to Peer call for pt from yesterday. Nancy at [facility] shared that Naina is at [facility] completing surgeries at this time and Nancy has no knowledge of peer to peer results. SW will attempt to contact [facility] for determination of pre-auth for pt. ZARINA Darnell
--- NOTE | 2022-02-02 09:46 | CASEMGMT ---
Discharge Linotype Machinist María from [facility] reached out. Peer to peer has been overturned and patient can go to [facility] when medically ready. PORTIA Green has been notified. Plan: [facility], when medically ready. Roberta Hickey Discharge Linotype Machinist
--- NOTE | 2022-02-02 10:19 | CASEMGMT ---
Addendum entered by Norma Cohn 02/02/22 11:50: SW in to pt room to notify of negative Covid result. Informed pt he can set up transportation now. Pt declined SW calling neighbor to set up transportation. Stated would call himself. SW faxed discharge orders to [facility] via [employer]. PORTIA called María at [facility] to inform pt would arrive today. María voiced understanding. Disposition: [facility], Skilled level of care. ZARINA Darnell Original Note: Social Work SW in to notify pt of insurance approval following appeal. Pt grateful. Expressed readiness to get back to somewhat normal. Pt stated neighbor friend will transport him when ready to discharge. SW asked if pt would like SW to call neighbor to coordinate. Pt declined, stated would call once neighbor and update on own. SW to notify pt when covid result returns and pt can transfer to [facility]. SW notified pt nurse, ordered covid test. PORTIA completed full PASSR in [facility] system. PORTIA made placed discharge orders in pt envelope and copies on pt chart. PLAN: [facility], pending negative covid result. ZARINA Darnell
--- NOTE | 2022-02-02 10:44 | PN.ORTHO_ITS ---
Subjective Subjective Patient is s/p right sided total knee arthroplasty with Dr. Arellano. Patient resting comfortably in bed. Rates pain 5/ 10 at rest. With movement 7/10. States taking oxycodone and Tylenol as needed and ice help to relieve pain. Patient has been up with therapy. Walking with the assit of a walker. Afebrile, no chest pain, shortness of breath, negative calf pain/ erythema, and no other signs of DVT. Objective Data Objective Data Vital Signs: Vital Signs Temp Pulse Resp BP Pulse Ox O2 Del Method O2 Flow Rate 98.0 F 97 16 96/51 L 97 Room Air 4 02/02/22 08:41 02/02/22 08:41 02/02/22 08:41 02/02/22 08:41 02/02/22 08:41 02/02/22 08:41 02/02/22 02:30 Oxygen Flow Rate (L/min) 4 Oxygen Delivery Method Room Air Weight: 78 kg Body Mass Index (BMI) 27.3 Intake & Output: Intake and Output for Last 24 Hours 01/31/22 02/01/22 02/02/22 23:59 23:59 23:59 Intake Total 1214.50 / 1214.50 1200 / 1200 Output Total 1725 / 2425 2900 / 3100 1300 / 1300 Balance -510.50 / -1210.50 -1700 / -1900 -1300 / -1300 Lab / Micro Data Result Diagrams: 01/31/22 04:35 01/31/22 04:35 Micro: Microbiology 01/24/22 14:28 Swab (Method) Nasal Screen MRSA/MSSA - Final Physical Exam Narrative Patient resting comfortably in bed No signs of acute distress Satting well on room air Limb is warm to touch, Sensation intact throughout entire lower extremity, including saphenous, sural, superficial and deep peroneal, and tibial dis tribution. DP/PT pulses bounding. Dorsi and plantar flexion 5/5 Dressing clear dry intact Calf nontender to palpation, no erythema, no edema. Negative Homans Assessment & Plan Assessment/Plan (1) Status post total right knee replacement: PLAN: Status post right total knee arthroplasty 1. Will continue PT today weightbearing as tolerated 2. Peer to peer excepted. Will transfer to SNF patient will be discharged [facility]. 3. Patient will follow up for post op appointment in 2 weeks 4. DVT prophylaxis : Aspirin 81 mg twice daily x4 weeks 5. Pain control: patient instructed to take tylenol 500mg 2 tablets TID. and oxy codone 1-2 tablets every 4-6 hours only as needed for pain control. 6. ok to remove post op dressing. 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
--- NOTE | 2022-02-02 10:48 | DS.PCM_ITS ---
Providers Date of Admission: 01/30/22 Primary Care Physician: Dr. Rob Parada MD Reason For Visit: LAP ROBOTIC TOTAL KNEE RIGHT Diagnosis Discharge Diagnosis (1) Status post total right knee replacement: Status: Acute Code(s): Z96.651 - Presence of right artificial knee joint Plan: Status post right total knee arthroplasty 1. Will continue PT today weightbearing as tolerated 2. Peer to peer excepted. Will transfer to SNF patient will be discharged today. 3. Patient will follow up for post op appointment in 2 weeks 4. DVT prophylaxis : Aspirin 81 mg twice daily x4 weeks 5. Pain control: patient instructed to take tylenol 500mg 2 tablets TID. and oxycodone 1-2 tablets every 4-6 hours only as needed for pain control. 6. ok to remove post op dressing. post op day 5 (2) Presence of total right knee joint prosthesis: Status: Acute Code(s): Z96.651 - Presence of right artificial knee joint Medications at Discharge Home Medications ketoconazole 2 % topical cream 1 applic topical PRN PRN SKIN IRRITATION 02/21/16 selenium sulfide 2.5 % lotion 120 ml PO DAILY PRN PRN SKIN IRRITATION 02/21/16 atorvastatin 10 mg tablet 10 mg PO DAILY 01/19/22 ibuprofen 600 mg tablet 600 mg PO Q6H PRN Pain 01/19/22 multivitamin 1 tab PO DAILY 01/19/22 turmeric 400 mg capsule 400 mg PO DAILY 01/19/22 acetaminophen 500 mg tablet 1,000 mg PO Q8H #90 tabs 01/31/22 aspirin 81 mg chewable tablet 81 mg PO BIDCM #60 tabs 01/31/22 oxycodone 5 mg tablet 5 - 10 mg PO Q4H PRN PRN Pain Score 4-10 7 days #60 tabs 01/31/22 Hospital Course Operations total knee replacement Physical Exam Narrative Patient resting comfortably in bed No signs of acute distress Satting well on room air Limb is warm to touch, Sensation intact throughout entire lower extremity, including saphenous, sural, superficial and deep peroneal, and tibial distribution. DP/PT pulses bounding. Dorsi and plantar flexion 5/5 Dressing clear dry intact Calf nontender to palpation, no erythema, no edema. Negative Homans Const alert and oriented x3 Weight / BMI Weight Weight: 78 kg Body Mass Index (BMI) 27.3 ABG / Lab / Microbiology Data Result Diagrams: 01/31/22 04:35 01/31/22 04:35 Microbiology: Microbiology 01/24/22 14:28 Swab (Method) Nasal Screen MRSA/MSSA - Final D/C Instructions Discharge Diet: No restrictions Discharge Activity: Return to Normal Activity May shower in (days): 3 Weight Bearing Status: Weight bearing as tolerated Keep extremity elevated above heart level: Operative Extremity Call your doctor if your incision/area has: Continuous Slow Oozing, Increased Pain/ Swelling, Foul Smelling Discharge and Swelling at the incision site Remove Dressing in: 5 days Meaningful Use Info Meaningful Use Diagnoses (Choose all that apply): None applicable Discharge Plan Admission Admit Date/Time: 01/30/22 11:40 Attending Provider: Fly Arellano Primary Care Provider: Rob Parada Discharge Orders/Prescriptions Prescriptions: New acetaminophen 500 mg Tablet 1,000 mg PO Q8H Qty: 90 0RF aspirin 81 mg Tablet,Chewable 81 mg PO BIDCM Qty: 60 0RF oxycodone 5 mg Tablet 5 - 10 mg PO Q4H PRN PRN (Reason: Pain Score 4-10) 7 Days Qty: 60 0RF Continued ketoconazole 15 GM cream 1 applic topical PRN PRN (Reason: SKIN IRRITATION) Label Comments: skin irritation selenium sulfide 120 ML lotion 120 ml PO DAILY PRN PRN (Reason: SKIN IRRITATION) Label Comments: skin irritation multivitamin Tablet 1 tab PO DAILY atorvastatin 10 mg tablet 10 mg PO DAILY Label Comments: TAKE 1 TABLET BY MOUTH ONCE DAILY AT BEDTIME FOR CHOLESTEROL turmeric 400 mg Capsule 400 mg PO DAILY ibuprofen 600 mg Tablet 600 mg PO Q6H PRN (Reason: Pain) Referrals / Follow Up: Rob Parada MD [Primary Care Provider] - Disposition Disposition (needs filled in before D/C Order can be placed): [facility]
--- NOTE | 2022-02-02 11:12 | PHA.DC.MR ---
Pharmacy Service has performed discharge medication reconciliation for this patient [facility] Home Medications ketoconazole 2 % topical cream 1 applic topical PRN PRN SKIN IRRITATION 02/21/16 selenium sulfide 2.5 % lotion 120 ml PO DAILY PRN PRN SKIN IRRITATION 02/21/16 atorvastatin 10 mg tablet 10 mg PO DAILY 01/19/22 ibuprofen 600 mg tablet 600 mg PO Q6H PRN Pain 01/19/22 multivitamin 1 tab PO DAILY 01/19/22 turmeric 400 mg capsule 400 mg PO DAILY 01/19/22 acetaminophen 500 mg tablet 1,000 mg PO Q8H #90 tabs 01/31/22 aspirin 81 mg chewable tablet 81 mg PO BIDCM #60 tabs 01/31/22 oxycodone 5 mg tablet 5 - 10 mg PO Q4H PRN PRN Pain Score 4-10 7 days #60 tabs 01/31/22 The patient's discharge medication list was reviewed for discrepancies and discrepancies were resolved.
[2022-02-02 11:16] VITALS: O2SAT 98
[2022-02-02 12:39] VITALS: BP 125/68; PULSE 94; RESP 18; TEMP 36.7; O2SAT 100
--- NOTE | 2022-02-02 13:53 | CASEMGMT ---
Discharge Regeneration Operator Roberta ortez/kristal case management assistant talked with patient. Patient has his ride coming at 2:30pm. Roberta called María at [facility] to inform her of this time. Plan: [facility], When ride gets here. Roberta Hickey Discharge Regeneration Operator
--- NOTE | 2022-02-02 14:41 | NURSING ---
REPORT CALLED TO [facility]
== END 2022-02-02 14:54 | disposition skilled nursing facility (03) ==
LOC: SDC 12:37 → MS3 12:37
PROVIDERS: Anesthesiology; Admitting Provider Orthopaedic Surgery; PCP Family Medicine; Referring Provider Orthopaedic Surgery; Visit Provider Orthopaedic Surgery
PROC: 0SRC0JZ Replacement of Right Knee Joint with Synthetic Substitute, Open Approach (ICD-10-PCS; CPT 27447; principal; 2022-01-30 07:00)
DX: M17.11 Unilateral primary osteoarthritis, right knee (principal); C61 Malignant neoplasm of prostate; E78.00 Pure hypercholesterolemia, unspecified; Z87.19 Personal history of other diseases of the digestive system; Z79.899 Other long term (current) drug therapy; I45.2 Bifascicular block; R94.31 Abnormal electrocardiogram [ECG] [EKG]
CPT/HCPCS: 27447; S2900; 01402; 36415; 71046; 73560; 80048; 82962; 83735; 85025; 85027; 87081; 87426; 88305; 88311; 93005; 96365; 96366; 96375; 96376; 97110; 97116; 97162; 97165; 97530; 97535; 99218; C1776; J7120; A4216; G0378; J2405; J3475

== ENCOUNTER → 2022-02-13 | Outpatient (CLI) | payer MEDICARE, SELFPAY ==
--- NOTE | 2022-02-13 14:30 | VDLE_ITS ---
Reason For Study: Pain RIGHT GSV is normal. CFV is compressible, spontaneous, phasic, competent and demonstrates normal augmentation. FV is compressible, spontaneous, phasic, competent and demonstrates normal augmentation. POP V is compressible, spontaneous, phasic, competent and demonstrates normal augmentation. T/P Trunk is compressible. PTV is compressible. RT PerV is compressible. Procedure This is a venous duplex using B-mode, color flow and spectral Doppler. Exam performed in department. A preliminary report was called and/or faxed to Dr. Arellano. VL/Venous Duplex US, Unilateral Interpretation Summary Deep veins of the right lower extremity are patent and compressible segmentally . There is no evidence of right lower extremity deep vein thrombosis. The right great sapheno us vein appears patent and compressible segmentally. Ordering Physician: Fly Arellano Referring Physician: Rob Parada Performed By: Nuvia Rob, KILO, RVT
== END | disposition home or self-care (01) ==
LOC: CVS 14:23
PROVIDERS: PCP Family Medicine; Referring Provider Orthopaedic Surgery; Visit Provider Orthopaedic Surgery
DX: M79.604 Pain in right leg (principal)
CPT/HCPCS: 93971